=== PATIENT | female | born 1940 ===

== ENCOUNTER 2021-03-08 20:54 | Emergency (ER) | payer OTHER ==
[2021-03-08] MEDS ORDERED: LIDOCAINE 1% W/EPI 1:100,000 MDV 20 ML VIAL ONE (20:56)
--- OUTSIDE RECORDS SUMMARY | 2021-03-08 20:58 | XMS REPORT | Continuity of Care Document ---
:1940 Author Organization [facility] t Address [address] [place] [address] Care Team Providers Name Role Phone Marcellus Anne MD Primary Care Physician Susana Ricci Attending Clinician Unavailable Singh LAURENT Attending Clinician Unavailable Nurse, Pob Immunization Attending Clinician Unavailable Dustin Abdalla DO Attending Clinician DUSTIN ABDALLA Attending Clinician Unavailable Akash Ramírez Attending Clinician Unavailable Radiology Attending Clinician Unavailable RADIOLOGY Attending Clinician Unavailable Doctor Unassigned, Name Attending Clinician Unavailable Leroy Caldera Attending Clinician Unavailable Karen COLILER Attending Clinician Unavailable Physician, Primary Care Admitting Clinician Unavailable Loncarsherie, P Admitting Clinician Unavailable Physician, Primary or Family Admitting Clinician Unavailabl e LONROBYN, P Admitting Clinician Unavailable Payers Payer Name Policy Type Policy Number Effective Date Expiration Date S ource Problems This patient has no known problems. Allergies, Adverse Reactions, Alerts Allergy Allergy Status Severity Reaction(s) Onset Inactive Treating Comm ents Source Name Type Date Date Clinician Sulfa Propensi Active Other - See 2020-03 Per Uni vers (Sulfona ty to comments 05-09 patient: ity of mide adverse 00:00: fever [place] Antibiot reaction 00 Medica l ics) s Branch hydrocod DA Active MO "COULD [facility] one HARDLY STAY 8-30 Clear AWAKE" 00:00: Moore 00 [facility] vancomyc DA Active MO RASHES [facility] in 11-27 Clear 00:00: [place] 00 [facility] Sulfa DA Active [place] [facility] (Sulfona 830 Clear mide 00:00: [place] Antibiot 00 [facility] hydrocod DA Active MO 2020- [facility] one 11-27 Clear 00:00: Moore 00 [facility] vancomyc DA Active [place] [facility] in 11-27 Clear 00:00: Moore 00 [facility] Sulfa DA Active MO RASHES [facility] (Sulfona 8-30 Clear mide 00:00: [place] Antibiot 00 Regiona ics) [facility] Center Sulfa DA Active U RASH 2018-03 [facility] (Sulfona 0-31 [place] m[place] 00:00: d Antibiot 00 Medical ics) Center Sulfa DA Active U 2018-03 [facility] (Sulfona 0-31 [place] 00:00: d Antibiot 00 Medical ics) Center Sulfa DA Active U [facility] (Sulfona 3-06 [place] mide 00:00: Orthope Antibiot 00 dic ics) Hospita l Sulfa DA Active U [facility] (Sulfona 3-05 [place] mide 00:00: Orthope Antibiot 00 dic ics) Hospita l Sulfa DA Active U [facility] (Sulfona 1-20 [place] mide 00:00: Orthope Antibiot 00 dic ics) Hospita l NO KNOWN Drug Active Univers ALLERGIE Class ity of [facility] Social History Social Habit Start Date Stop Date Quantity Comments Source Sex Assigned At [birth year] [facility] 00:00:00 00:00:00 [facility] Smoking Status Start Date Stop Date Source Unknown if ever smoked [facility] Medications This patient has no known medications. Immunizations Ordered Filled Immunization Date Status Comments [facility] e Immunization Name Name SARS-COV-2 COVID-19 2021-02-08 Completed Unive rsity of PFIZER VACCINE 00:00:00 [facility] SARS-COV-2 COVID-19 2021-02-08 Completed Unive rsity of PFIZER VACCINE 00:00:00 [facility] SARS-COV-2 COVID-19 2020-05-25 Completed Unive rsity of PFIZER VACCINE 00:00:00 [facility] SARS-COV-2 COVID-19 2020-05-25 Completed Unive rsity of PFIZER VACCINE 00:00:00 [facility] SARS-COV-2 COVID-19 2020-05-25 Completed Unive rsity of PFIZER VACCINE 00:00:00 [facility] SARS-COV-2 COVID-19 2020-05-25 Completed Unive rsity of PFIZER VACCINE 00:00:00 [facility] SARS-COV-2 COVID-19 2020-04-27 Completed Unive rsity of PFIZER VACCINE 00:00:00 [facility] SARS-COV-2 COVID-19 2020-04-27 Completed Unive rsity of PFIZER VACCINE 00:00:00 [facility] SARS-COV-2 COVID-19 2020-04-27 Completed Unive rsity of PFIZER VACCINE 00:00:00 [facility] SARS-COV-2 COVID-19 2020-04-27 Completed Unive rsity of PFIZER VACCINE 00:00:00 [facility] Procedures Procedure Date / Time Performed Performing Clinician [facility] e SARS-COV-2 COVID-19 2021-02-08 16:08:43 Doctor Unassigned, No [facility] [place] VACCINE,0.3ML, Name Medical Branch (PFIZER) MR ANKLE RIGHT WO 2020-09-11 20:47:00 Requisition, Paper Univers [facility] ASSIGNMENT OF BENEFITS 2020-09-11 19:54:15 Doctor Unassigned, No [facility] [id number] 2019-04-22 [facility] [id number] 2019-04-22 00:00:00 WILJB [facility] [id number] 2019-04-22 [facility] [id number] 2019-04-22 00:00[facility] [id number] 2019-04-22 00:00:00 [facility] Encounters Start End Encounter Admission Attending Care Care Encounter Source Date/Time Date/Time Type Type Clinicians Facility Department ID 2019-04-29 Inpatient AIME CrespoTO DAYS [id number] [facility] 08:30:00 [facility] [place] [facility] 2019-04-22 Inpatient AIME CrespoTO DAYS [id number] [facility] 08:30:00 Dominic [id number] [place] [facility] 2019-04-05 Inpatient AIME CrespoTO RADI [id number] [facility] 07:45:00 Dominic [place] [facility] 2021-03-08 2021-03-08 Nurse Yecenia Winters [id number] Univers 00:00:00 00:00:00 Triage CALI [id number] it y [facility] [id number] Ron as [id number] [address] 2021-02-08 2021-02-08 Imm/Inj Nurse, Adc Pob Immunization [facility] [id number] Univers 10:01:08 10:01:17 Visit Giancarlo Abdalla 350.1.13 .[facility] [place] [id number] Md dical [address] 2021-02-08 2021-02-08 Outpatient Madeleine ABDALLA [facility] [id number] Univers 10:00:00 10:00:00 GIANCARLO alonso [facility] 2020-12-05 2020-12-05 Outpatient BALDOMERO Ramírez HCATO DAYS [id number] [facility] 09:05:00 09:05:00 Star [id number] [place] [facility] 2020-11-27 2020-11-27 Outpatient AIME RamírezCL LABO [id number] [facility] 18:55:00 18:55:00 Star [id number] [facility] 2020-11-27 2020-11-27 Inpatient BALDOMERO Ramírez HCATO SURG [id number] [facility] 15:00:00 15:00:00 Star [id number] [place] [facility] 2020-09-11 2020-09-11 Hospital Radiology [facility] [id number] Univers 14:56:55 23:59:00 Encounter Lilly [id number] ity of [place] 4.2.7.2.686 [facility] [id number] [facility] 804 Branch 2020-09-11 2020-09-11 Outpatient [facility] [id number] Univers 15:00:00 15:00:00 [id number] ity [facility] 2020-09-11 2020-09-11 Outpatient R RADIOLOGY [facility] [id number] Univers 00:00:00 00:00:00 ity [facility] 2020-09-11 2020-09-11 Orders Doctor AILIN [id number] [id number] Univers 00:00:00 00:00:00 Only Unassigned, CALI 350.1.13.10 ity of [facility] 4.2.7.2.686 [facility] [id number] [facility] 009 Branch 2020-07-18 2020-07-18 Outpatient YELENA Barnes [id number] [facility] 12:00:00 12:00:00 Nikki [id number] [facility] 2020-05-25 2020-05-25 Outpatient R [facility] [id number] Univers 12:50:00 12:50:00 [id number] [facility] 2020-05-25 2020-05-25 Outpatient R NANDO, [facility] [id number] Univers 12:50:00 12:50:00 [facility]-05-18 2020-05-18 Outpatient R NANDO [facility] [id number] Univers 12:50:00 12:50:00 EDEN [id number] ity [facility] 2020-04-27 2020-04-27 Outpatient R NANDO [facility] [id number] Univers 11:30:00 11:30:00 EDEN [facility] 2019-04-22 2019-04-22 Outpatient APARNA Ricci LABO [id number] [facility] 17:58:00 17:58:00 Dominic [id number] [facility] 2019-04-05 2019-04-05 Outpatient YENI Ricci SIST [id number] [facility] 12:09:00 12:09:00 Dominic [id number] [facility] 2018-04-16 2018-04-16 Outpatient R RADIOLOGY [facility] [id number] [facility] [place] [facility] 09:44:22 23:59:00 ity [facility] Results Test Description Test Time Test Comments Results Result Comments Source Novel Coronavirus 2018 Inhouse 2020-11-28 12:30:00 Test Item Value Reference Range Interpretation Comme nts Novel Coronavirus 2019 Negative Negative Posit edy results are indicative of the Inhouse (test code = presenc e [id number]-9 RNA, clinical COVNONPUI) correlation wit h patient historyand other diagnosti c information is necessary to de terminepatient infection status. Positiv e results do not rule outbacterial in fection or co-infection with other viru ses. Negative results do not preclude SA RS-CoV-2 infection andshould not b e used as the sole basis for patient man agementdecisions. Negative result s must be combined with otherclinical o bservations, patient history, and ep idemiologicalinformation. Detection of SA RS-CoV-2 RNA may be affected bysamp le collection methods, storage conditi ons, and/or stageof infection. Tammy l RNA mutations, vaccinations, a ntiviraltherapeutics, antibiotics, ch emotherapeutic orimmunosuppres christine drugs have not been evaluated for e ffectson detection. Results are for the identification of SARS-CoV-2 RNA usingthe JoGuru M2000 System under th e FDA Emergency UseAuthorizatio n. The testing is performed by regina rsonneltrained in the procedures for the Kiser M2000 moleculardiagno stic SARS-CoV-2 assay in vitro. Novel Coronavirus 2018 [id number] 12:29:00 Test Item Value Reference Range Interpretation Comments Novel Coronavirus Negative Negative Positive r esults are 2019 Inhouse (test indicativ e of the presence code = COVNONPUI) ofSARS-CoV -2 RNA, clinical correlation wit h patient historyand othe r diagnostic info rmation is necessary to determinepatien t infection status. Positiv e results do not rule out bacterial infection or co -infection with other viru ses. Negative result s do not preclude SARS-C oV-2 infection andsh ould not be used as the jasmeet e basis for patient managementdecis ions. Negative result s must be combined with otherclinical observations, p atient history, and epidemiological information . Detection of SARS-CoV-2 RNA may be affe cted bysample collec tion methods, storag e conditions, and /or stageof infection. Tammy l RNA mutations, vacc inations, antiviraltherap eutics, antibiotics, chemotherapeuti c orimmunosuppres christine drugs have not been e valuated for effectson d etection. Results are for the identification of SARS-CoV-2 RNA usingthe JoGuru M2000 Sy stem under the FDA Emergen cy UseAuthorizatio n. The testing is perf ormed by saw webb in the procedures for the MeetMeTix000 molecular diagnostic SARS-CoV-2 assa y in vitro. BASIC METABOLIC [id number] 21:13:00 Test Item Value Reference Range Interpretation Comments SODIUM (test code = 144 mmol/L 136-145 N NA) POTASSIUM (test code = 4.1 mmol/L 3.5-5.1 N K) CHLORIDE (test code = 107.0 mmol/L 98-107 N CL) CARBON DIOXIDE (test 26.5 mmol/L 21-32 N code = CO2) GLUCOSE (test code = 110 mg/dL 70-110 N GLU) BLOOD UREA NITROGEN 16 mg/dL 7-18 N (test code = BUN) GLOMERULAR FILTRATION 65.8 >60 Unit o f measure: RATE (test code = GFR) mL/mi n/1.73 [id number] Range:Healthy Adults >90 mL/min/1.73 m2 For Chronic Kidney Disease: St age II Mild Decrease in GFR 60-90 St age III Moderate Decrease in GFR 30-59 Stage IV Severe Decre ase in GFR 15- 29 Stage V Kidney Failure <15 CREATININE (test code 0.83 mg/dL 0.55-1.30 N = CREAT) CALCIUM (test code = 9.6 mg/dL 8.2-10.1 N CA) MR ANKLE RIGHT WO [id number] 00:11:00 Nondisplaced fracture of the tip of the fibula. Mild marrow edema within the medial aspect of the navicula compatible withcontusion or stress reaction. Tendinopathy versus low-grade partial thickness tearing of the distalposterior tibialis tendon with associated mild tenosynovitis. Tendinopathy of the peroneus longus tendon. Partial- thickness tears of the anterior posterior tibiofibular ligamentsandanterior talofibular ligament. There is also thickening and increasedT2 signal intensity within the proximal aspect of the calcaneofibularligament, compatible with partial-thickness tear. INDICATION: ?Ankle pain ORDERING PROVIDER: ?STAR RAMÍREZ TECHNIQUE: ?Unenhanced MRI of the right ankle and hindfoot RL: 2832 FINDINGS: ?There is a nondisplaced fracture through the tip of the fibulawith fracture fragment measuring up to 6 mm in size. There is associatedmarrow edema compatible with recent fracture. Mild marrow edema is noted within the medial aspect of the navicula whichcould be related to contusion or stress reaction. No additional acute marrow edema is identified. No suspicious marrow signalabnormality, osteonecrosis, or osteochondral lesion is demonstrated. No joint effusion is present. Mildly increased T2 signal intensity is noted within the peroneus longusjust proximal to the cuboid tunnel compatible with tendinopathy. Thepe roneus brevis is intact. No peroneal tenosynovitis. Mild posterior tibial tenosynovitis is present. Mild thickening andincreased T2 signal intensity involving the distal posterior tibialistendon is compatible with tendinopathy or low-grade partial thicknesstearing. The flexor hallucis longus and flexor digitorum longus tendons areintact, without tenosynovitis. The extensor tendons are intact, withouttenosynovitis. The Achilles tendon is intact. The plantar fascia is intact. No acute muscular edema or asymmetric atrophy is noted. Thickening of the anterior talofibular ligament is noted. This iscompatible with age-indeterminate partial thickness injury. Thickening of the anterior and posterior tibiofibular ligaments are alsocompatible with partial-thickness tear. The posterior talofibular ligamentis intact as are the deep andsuperficial fibers of the deltoid ligament. There is prominent thickening and increased T2 signal intensity within theproximal calcaneofibular ligament compatible with partial-thickness tear. [facility], Radiant Results Inft User - 09/11/2020 7:12 PM CDT INDICATION: Ankle painORDERING PROVIDER: STAR RAMÍREZTECHNIMICK: Unenhanced MRI of the right ankle and hindfootRL: 4084 FINDINGS: There is a nondisplaced fracture through the tip of the fibulawith fracture fragment measuring up to 6 mm in size. There is associatedmarrow edema compatible with recent fracture.Mild marrow edema is noted within the medial aspect of the navicula whichcould be related to contusion or stress reaction.No additional acute marrow edema is identified. No suspicious marrow signalabnormality, osteonecrosis, or osteochondral lesion is demonstrated.No joint effusion is present.Mildly increased T2 signal intensity is noted within the peroneus longusjust proximal to the cuboid tunnel compatible with tendinopathy. Theperoneus brevis is intact. No peroneal tenosynovitis.Mild posterior tibial tenosynovitis is present. Mild thickening andincreased T2 signal intensity involving the distal posterior tibialistendon is compatible with tendinopathy or low-grade partial thicknesstearing. The flexor hallucis longus and flexor digitorum longus tendons areintact, without tenosynovitis.The extensor tendons are intact, without tenosynovitis.The Achilles tendon is intact.The plantar fascia is intact.No acute muscular edema or asymmetric atrophy isnoted.Thickening of the anterior talofibular ligament is noted. This iscompatible with age-indeterminate partial thickness injury.Thickening of the anterior and posterior tibiofibular ligaments are alsocompatible with partial-thickness tear.The posterior talofibular ligament is intact as are the deep andsuperficial fibers of the deltoid ligament.There is prominent thickening and increased T2 signal intensity within theproximal calcaneofibular ligament compatible with partial-thickness tear.IMPRESSIONNondisplaced fracture of the tip of the fibula.Mild marrow edema within the medial aspect of the navicula compatible withcontusion or stress reaction.Tendinopathy versus low-grade partial thickness tearing of the distalposterior tibialis tendon with associated mild tenosynovitis.Tendinopathy of the peroneus longus tendon.Partial-thickness tears of the anterior posterior tibiofibular ligamentsand anterior talofibular ligament. There is also thickening and increasedT2 signal intensity within the proximal aspect of the calcaneofibularligament, compatible with partial-thickness tear. [facility] ISTAT-2019-05-12 12:51:00 Test Item Value Reference Range Interpretation Comments ISTAT-HEMOGLOBIN (test code = HBP) 9.5 g/dL 12-16 L ISTAT-HEMATOCRIT (test code = 28 % 38-51 L HCTP) ISTAT-SODIUM (test code = NAP) 151 mmol/L 138-146 H ISTAT-POTASSIUM (test code = KP) 4.3 mmol/L 3.5-4.9 N ISTAT-CHLORIDE (test code = CLP) 108 mmol/L 98-109 N ISTAT-GLUCOSE (test code = GLUP) 159 mg/dL 70-105 H ISTAT-BUN (test code = BUN-P) 10 mg/dL 8-26 N BASIC METABOLIC [id number] 17:43:00 Test Item Value Reference Range Interpretation Comments SODIUM (test code = 143 mmol/L 136-145 N NA) POTASSIUM (test code = 4.1 mmol/L 3.5-5.1 N K) CHLORIDE (test code = 103.0 mmol/L 98-107 N CL) CARBON DIOXIDE (test 27.7 mmol/L 21-32 N code = CO2) GLUCOSE (test code = 147 mg/dL 70-110 H GLU) BLOOD UREA NITROGEN 6 mg/dL 7-18 L (test code = BUN) GLOMERULAR FILTRATION 81.7 >60 Unit o f measure: RATE (test code = GFR) mL/mi n/1.73 [id number] Range:Healthy Adults >90 mL/min/1.73 m2 For Chronic Kidney Disease: St age II Mild Decrease in GFR 60-90 St age III Moderate Decrease in GFR 30-59 Stage IV Severe Decre ase in GFR 15- 29 Stage V Kidney Failure <15 CREATININE (test code 0.69 mg/dL 0.55-1.30 N = CREAT) CALCIUM (test code = 8.3 mg/dL 8.2-10.1 N CA) HGB [id number] 05:47:00 Test Item Value Reference Range Interpretation Comments HEMOGLOBIN (test code = HGB) 8.2 g/dL 12-16 L HEMATOCRIT (test code = HCT) 24.6 % 37-47 L HGB [id number] 05:56:00 Test Item Value Reference Range Interpretation Comments HEMOGLOBIN (test code = 6.8 g/dL 12-16 LL VERI FIED BY REPEAT HGB) ANALYSIS.CRITIC AL VALUE CALLED TO ERIC GIO/FAB JARETHERAREAD BACK & CONFIRMED? YBY Y.LAB.[facility] 04/28 0555 HEMATOCRIT (test code = 19.9 % 37-47 LL VERI FIED BY REPEAT HCT) ANALYSIS.CRITIC AL VALUE CALLED TO ERIC POWERS/FAB KARERAREAD BACK & CONFIRMED? YBY Y.LAB.[facility] 04/28 0556 HGB [id number] 07:06:00 Test Item Value Reference Range Interpretation Comments HEMOGLOBIN (test code = HGB) 8.1 g/dL 10.7-13.9 L HEMATOCRIT (test code = HCT) 24.3 % 32.1-42.1 L HGB [id number] 07:06:00 Test Item Value Reference Range Interpretation Comments HEMOGLOBIN (test code = HGB) 8.1 g/dL 10.7-13.9 L HEMATOCRIT (test code = HCT) 24.3 % 32.1-42.1 L HGB [id number] 07:10:00 Test Item Value Reference Range Interpretation Comments HEMOGLOBIN (test code = HGB) 7.0 g/dL 12-16 L HEMATOCRIT (test code = HCT) 21.1 % 37-47 L - XR SPINE 1 V SPEC [id number] 11:48:00 Patient Name: JJ CHAO Unit No: [id number] EXAMS: CPT CODE: [id number] XR SPINE 1 V SPEC LEVEL 70679 INTRAOPERATIVE LATERAL LUMBAR SPINE Film 1. A surgical instrument is posterior to L3-4. Film 2. Anterior intervertebral grafts are seen from L4 to S1 and pedicle screws present in L3. Film 3. Anterior and posterior fusionis present from L4 to S1 with posterior fusion at L3-4. at 1148 Reported and signed by: Thad Estes MD CC:Felipe Ricci M.D. Technologist: MAX, GREEN RT(R) Transcribed D/ (9590) t.ELIZAR.[facility] NAME: JJ CHAO [address] [place] [address] PHYS: Dominic Virk MD : 1940 AGE: 79 SEX: F [place] [address] LOC: Y.511 A PHONE #: [phone] EXAM DATE: 04/22/2019 STATUS: ADM IN FAX #: [phone] RAD #: D/C DT PAGE 1 Signed Report Patient Name: JJ CHAO Unit No: [id number] EXAMS: CPT CODE: [id number] XR SPINE 1 V SPEC LEVEL 19911 <Continued> Orig Print D/T: S: 04/23/2019 (3881) [facility] NAME: JJ CHAO [address] [place] [address] PHYS: Dominic Virk MD : 1940 AGE: 79 SEX: F [place] [address] LOC: Y.511 A PHONE #: [phone] EXAM DATE: 04/22/2019 STATUS: ADM IN FAX #: [phone] RAD #: D/C DT PAGE 2 Signed Report- XR SPINE 1 V SPEC [id number] 11:48:00 Patient Name: JJ CHAO Unit No: [id number] EXAMS: CPT CODE: [id number] XR SPINE 1 V SPEC LEVEL 22827 INTRAOPERATIVE LATERAL LUMBAR SPINE Film 1. A surgical instrument is posterior to L3-4. Film 2. Anterior intervertebral grafts are seen from L4 to S1 and pedicle screws present in L3. Film 3. Anterior and posterior fusionis present from L4 to S1 with posterior fusion at L3-4. at 1148 Reported and signed by: Thad Estes MD CC:Felipe Ricci M.D. Technologist: TAMMY LOUISE (RT.R) Transcribed D/ (1115) [email or web address].[facility] NAME: JJ CHAO [address] PHYS: Dominic Virk MD : 1940 AGE: 79 SEX: F [place] [address] LOC: Y.511 A PHONE #: [phone] EXAM DATE: 04/22/2019 STATUS: ADM IN FAX #: [phone] RAD #: D/C DT PAGE 1 Signed Report Patient Name: JJ CHAO Unit No: [id number] EXAMS: CPT CODE: [id number] XR SPINE 1 V SPEC LEVEL 75169 <Continued> Orig Print D/T: S: 04/23/2019 (1151) [facility] NAME: JJ CHAO [address] [facility] PHYS: Dominic Virk MD : 1940 AGE: 79 SEX: F [place] [address] LOC: Y.511 A PHONE #: [phone] EXAM DATE: 04/22/2019 STAT US: ADM IN FAX #: [phone] RAD #: D/C DT PAGE 2 Signed Report- XR SPINE 1 V SPEC LEVEL 2019-04-23 11:48:00 Patient Name: JJ CHAO Unit No: [id number] EXAMS: CPT CODE: [id number] XR SPINE 1 V SPEC LEVEL 48305 INTRAOPERATIVE LATERAL LUMBAR SPINE Film 1. A surgical instrument is posterior to L3-4. Film 2. Anterior intervertebral grafts are seen from L4 to S1 and pedicle screws present in L3. Film 3. Anterior and posterior fusionis present from L4 to S1 with posterior fusion at L3-4. at 1148 Reported and signed by: Thad Estes MD CC:Felipe Ricci M.D. Technologist: TAMMY LOUISE (RT.R) Transcribed D/ (1148) tALEKSANDRA [facility] NAME: JJ CHAO [address] [facility] PHYS: Dominic Virk MD : 1940 AGE: 79 SEX: F [place] [address] LOC: Y.511 A PHONE #: [phone] EXAM DATE: 04/22/2019 STATUS: ADM IN FAX #: [phone] RAD #: D/C DT PAGE 1 Signed Report Patient Name: JJ CHAO Unit No: [id number] EXAMS: CPT CODE: [id number] XR SPINE 1 V SPEC LEVEL 36571 <Continued> Orig Print D/T: S: 04/23/2019 (1151) [facility] NAME: JJ CHAO [address] [facility] PHYS: Dominic Virk MD : 1940 AGE: 79 SEX: F [place], [place] [address] LOC: Y.511 A PHONE #: [phone] EXAM DATE: 04/22/2019 STATUS: ADM IN FAX #: [phone] RAD #: D/C DT PAGE 2 Signed ReportBASIC METABOLIC [id number] 06:31:00 Test Item Value Reference Range Interpretation Comments SODIUM (test code = 142 mmol/L 136-145 N NA) POTASSIUM (test code = 4.5 mmol/L 3.5-5.1 N K) CHLORIDE (test code = 108.0 mmol/L 98-107 H CL) CARBON DIOXIDE (test 23.2 mmol/L 21-32 N code = CO2) GLUCOSE (test code = 115 mg/dL 70-110 H GLU) BLOOD UREA NITROGEN 13 mg/dL 7-18 N (test code = BUN) GLOMERULAR FILTRATION 63.3 >60 Unit o f measure: RATE (test code = GFR) mL/mi n/1.73 [id number] Range:Healthy Adults >90 mL/min/1.73 m2 For Chronic Kidney Disease: St age II Mild Decrease in GFR 60-90 St age III Moderate Decrease in GFR 30-59 Stage IV Severe Decre ase in GFR 15- 29 Stage V Kidney Failure <15 CREATININE (test code 0.86 mg/dL 0.55-1.30 N = CREAT) CALCIUM (test code = 7.9 mg/dL 8.2-10.1 L CA) HGB [id number] 06:00:00 Test Item Value Reference Range Interpretation Comments HEMOGLOBIN (test code = HGB) 7.6 g/dL 12-16 L HEMATOCRIT (test code = HCT) 22.6 % 37-47 L - MRI L-SPINE W/O [id number] 13:15:00 Patient Name: JJ CHAO Unit No: [id number] EXAMS: CPT CODE: [id number] MRI L-SPINE W/O CONT [id number] MRI OF THE LUMBAR SPINE: DIAGNOSIS: 1. At L1-2, disc de siccation. No central canal or foraminal stenosis. 2. At L2-3, disc desiccation. Mild central canal stenosis. Mild to moderate right foraminal mild left foraminal stenosis. 3. At L3-4, moderate disc degeneration. There is a grade 1 spondylolisthesis of L3 onL4. 3 mm disc protrusion. Marked hypertrophic central canal stenosis secondary to thickeningof ligamenta flava and marked facet arthropathy. There is concentric compression of thethecal sac and contained nerve roots. Bilateral lateral gutter stenosis. Marked bilateral foraminal stenosis secondary to lateralizing disc. 4. At L4-5, patient status post anterior discectomy and laminectomy. Mild foraminal stenosis. 5. At L5-S1, patient status post anterior discectomy and laminectomy. Moderate right foraminal mild left foraminal stenosis. COMMENT: COMPARISON: The current exam is compared to a previous exam dated December 06, 2016. Sagittal T1, T2 and STIR and axial T1 and T2-weighted sequences are obtained of the lumbar spine. The lumbar vertebrae are within normal limits in signal. The findings are as above. The conus is in the expected location. at 1315 Reported and signed by: Nabeel Rivera MD CC: Felipe Ricci M.D. Technologist: Alice Tejeda, RT(R) Transcribed D/ (1315) [id number] [facility] NAME: JJ CHAO [address] PHYS: Dominic Virk MD : 1940 AGE: 79 SEX: F [place], [place] [address] LOC: Y.MRI PHONE #: [phone] EXAM DATE: 04/05/2019 STATUS: REG CLI FAX #: [phone] RAD #: D/C DT PAGE 1 Signed Report Patient Name: FORTUNATO CAHO Unit No: [id number] EXAMS: CPT CODE: [id number] MRI L-SPINE W/O CONT [id number] <Continued> Orig Print D/T: S: 04/05/2019 (1318) [facility] NAME: JJ CHAO [address] [facility] PHYS: Dominic Virk MD : 1940 AGE: 79 SEX: F [place], [place] [address] LOC: Y.MRI PHONE #: [phone] EXAM DATE: 04/05/2019 STATUS: REG CLI FAX #: [phone] RAD #: D/C DT PAGE 2 Signed ReportBASIC METABOLIC [id number] 12:53:00 Test Item Value Reference Range Interpretation Comments SODIUM (test code = 140 mmol/L 136-145 N NA) POTASSIUM (test code = 4.3 mmol/L 3.5-5.1 N K) CHLORIDE (test code = 103.0 mmol/L 98-107 N CL) CARBON DIOXIDE (test 23.9 mmol/L 21-32 N code = CO2) GLUCOSE (test code = 97 mg/dL 70-110 N GLU) BLOOD UREA NITROGEN 17 mg/dL 7-18 N (test code = BUN) GLOMERULAR FILTRATION 58.6 >60 Unit o f measure: RATE (test code = GFR) mL/mi n/1.73 [id number] Range:Healthy Adults >90 mL/min/1.73 m2 For Chronic Kidney Disease: St age II Mild Decrease in GFR 60-90 St age III Moderate Decrease in GFR 30-59 Stage IV Severe Decre ase in GFR 15- 29 Stage V Kidney Failure <15 CREATININE (test code 0.92 mg/dL 0.55-1.30 N = CREAT) CALCIUM (test code = 9.3 mg/dL 8.2-10.1 N CA) URINALYSIS [id number] 11:07:00 Test Item Value Reference Range Interpretation Comments UA COLOR (test code = COLU) YELLOW YELLOW UA APPEARANCE (test code = CLEAR CLEAR APPU) UA GLUCOSE DIPSTICK (test code NEGATIVE NEGATIVE = DGLUU) UA BILIRUBIN DIPSTICK (test NEGATIVE NEGATIVE code = BILU) UA KETONE DIPSTICK (test code NEGATIVE mg/dL NEG = KETU) UA SPECIFIC GRAVITY (test code <=1.005 1.003-1.035 = SGU) UA BLOOD DIPSTICK (test code = NEGATIVE NEGATIVE CHRISTINA) UA PH DIPSTICK (test code = 5.5 >6.5 MICHAELA) UA PROTEIN DIPSTICK (test code NEGATIVE mg/dL NEG = PROU) UA UROBILINIOGEN DIPSTICK 0.2 mg/dL NORM (test code = URO) UA NITRITE DIPSTICK (test code NEGATIVE NEG = LETY) UA LEUKOCYTE ESTERASE DIPSTICK NEGATIVE NEGATIVE (test code = LEUU) UA WBC (test code = WBCU) <5 /HPF 0-2 UA RBC (test code = RBCU) 0-2 /HPF 0-2 UA EPITHELIAL CELLS (test code FEW /HPF 0-2 = EPIU) UA BACTERIA (test code = BACU) FEW /HPF NONE CBC W/AUTO [id number] 10:45:00 Test Item Value Reference Range Interpretation Comments WHITE BLOOD CELL (test code = WBC) 6.5 K/mm3 5.8-11.0 N RED BLOOD CELL (test code = RBC) 4.07 M/mm3 4.2-5.4 L HEMOGLOBIN (test code = HGB) 12.6 g/dL 12-16 N HEMATOCRIT (test code = HCT) 37.0 % 37-47 N MEAN CELL VOLUME (test code = MCV) 91 fL 80-98 N MEAN CELL HGB (test code = MCH) 31.0 pg 27-34 N MEAN CELL HGB CONCENTRATION (test 34.1 g/dL 30.8-34.1 N code = MCHC) RED CELL DISTRIBUTION WIDTH (test 13.7 % 11-16 N code = RDW) PLT (test code = PLT) 215 K/mm3 130-400 N MEAN PLATELET VOLUME (test code = 10.1 fL 8.9-12.1 N MPV) NEUTROPHIL % (test code = NT%) 55.0 % 45-70 N LYMPHOCYTE % (test code = LY%) 36.7 % 20-40 N MONOCYTE % (test code = MO%) 6.4 % 3-10 N EOSINOPHIL % (test code = EO%) 0.8 % 1-5 L BASOPHIL % (test code = BA%) 0.8 % 0.0-1.1 N NEUTROPHIL # (test code = NT#) 3.55 K/mm3 2.00-7.50 N LYMPHOCYTE # (test code = LY#) 2.37 K/mm3 1.50-4.00 N MONOCYTE # (test code = MO#) 0.41 K/mm3 0.2-0.8 N EOSINOPHIL # (test code = EO#) 0.05 K/mm3 0.04-0.4 N BASOPHIL # (test code = BA#) 0.05 K/mm3 0.02-0.10 N MANUAL DIFF REQUIRED (test code = NO MANUAL DIFF MDIFF) NUCLEATED RED BLOOD CELL (test 0 % 0-0 N code = NRBC) - XR FLUORO FOR SPINE [id number] 10:11:00 Patient Name: JJ CHAO Unit No: [id number] EXAMS: CPT CODE: [id number] XR FLUORO FOR SPINE INJ 79672 LUMBAR TRANSFORAMINAL INJECTION REFERRING PHYSICIAN:Bill Montez PREOPERATIVE DIAGNOSIS: Degenerative Lumbar Disc Disease. POSTOPERATIVE DIAGNOSIS: Lumbar radiculopathy PROCEDURES PERFORMED 1. Fluoroscopically guided needle localization of the bilateral L3, bilateral L4 spinal nerve/nerves with transforaminal epidural steroid injection/injections. 2. Transforaminal epidurogram/epidurograms bilateral L3, bilateral L4. FINDINGS: Poor filling all. Concordant provocation bilateral L4 hip. Pain relief-100%. ANTIBIOTIC: Cefazolin ESTIMATED BLOOD LOSS: Minimal ANESTHESIA: (TIVA )Total intravenous anesthetic (patient intolerant to sedatives and hypnotics) COMPLICATIONS: None DETAILS OFPROCEDURE: After obtaining stable vital signs, informed consent and IV access, with no known co ntraindications to proceeding, the patient was taken to the fluoroscopy suite and placed in a prone position with all extremities padded and appropriate monitors placed. A sterile prep and drape was performed over the lumbosacral spine. Using fluoroscopic visualization at each level the insertion site was marked for a paravertebral approach to the foramen. Using standard technique, a 25 gauge needle was advanced to the base of the pedicle. In AP view, final positioning was obtained outside the 6 on the clock position on the pedicle. Then, 1 mlof Isovue-300 contrast was injected to produce the epidurograms. No paresthesias were elicited with needle insertion or injection and there were no signs of intravascular or intrathecal uptake. Then, with 1 ml of 4% lidocaine and 10 mg of triamcinolone was injected incrementally with frequent negative aspirations. There were no signs of intravascular or intrathecal uptake. Each subsequent level was done using the same technique and medications. The patient's vital signs remained stable. The patient was taken to the PACU in good condition. at 1011 Reported and signed by: Deejay Blanca M.D. [facility] NAME: JJ CHAO [address] [facility] PHYS: Deejay Castaneda MD [place] [address] : 1940 AGE: 78 SEX: F LOC: [facility] PHONE #: [phone] EXAM DATE: 01/28/2019 [place]US: [place] [facility] [place] #: [phone] RAD #: D/C DT PAGE 1 Signed Report (CONTINUED) Patient Name: JJ CHAO Unit No: [id number] EXAMS: CPT CODE: [id number] XR FLUORO FOR SPINE INJ 62947 <Continued> CC: Deejay Blanca MD Technologist:GIDEON HERNANDEZ RT(R) Transcribed D/ (1011) tCADYUVZelalem [facility] NAME: ZHANNAISIDOROJJDAR HUERTA [address] [facility] PHYS: Deejay Castaneda MD [place] [address] : 1940 AGE: 78 SEX: F LOC: FR[facility] PHONE #: [phone] EXAM DATE: 01/28/2019 STATUS: REG SD FAX #: [phone] RAD #: D/C DT PAGE 2 Signed Report Patient Name: JJ CHAO Unit No: [id number] EXAMS: CPT CODE: [id number] XR FLUORO FOR SPINE INJ 53891 <Continued> Orig Print D/T:S: 01/28/2019 (1014) [facility] NAME: JJ CHAO [address] [facility] PHYS: DOCUD - Doctor,Deejay Higginbotham MD [place], [place] [address] : 1940 AGE: 78 SEX: F LOC: [facility] PHONE #: [phone] EXAM DATE: 01/28/2019 STATUS: REG SD FAX #: [phone] #: D/C DT PAGE 3 Signed Report- XR FLUORO FOR SPINE [id number] 09:19:00 Patient Name: JJ CHAO Unit No: [id number] EXAMS: CPT CODE: [id number] XR FLUORO FOR SPINE INJ 41188 LUMBAR TRANSFORAMINAL INJECTION REFERRING PHYSICIAN: PREOPERATIVE DIAGNOSIS: Degenerative Lumbar Disc Disease. POSTOPERATIVE DIAGNOSIS: Lumbar radiculopathy PROCEDURES PERFORMED 1. Fluoroscopically guided needle localization of the bilateral L4, bilateral L3, bilateral S1 spinal nerve/nerves with transforaminal epidural steroid injection/injections. 2. Transforaminal epidurogram/epidurogramsat bilateral L3, bilateral L4, bilateral S1. FINDINGS: Poor filling all. Concordant provocation bilateral L4 hips. Pain relief-100%. ANTIBIOTIC: Cefazolin ESTIMATED BLOOD LOSS: Minimal ANESTHESIA: (TIVA )Total intravenous anesthetic(patient intolerant to sedatives and hypnotics) COMPLICATIONS: None DETAILS OF PROCEDURE: After obtaining stable vital signs, informed consent and IV access, with no known contraindications to proceeding, the patient was taken to the fluoroscopy suite and placed in a prone position with all extremities padded and appropriate monitors placed. Asterile prep and drape was performed over the lumbosacral spine. Using fluoroscopic visualization at each level the insertion site was marked for a paravertebral approach to the foramen. Using standard technique, a 25 gauge needle was advanced to the base of the pedicle. In AP view, final positioning was obtained outside the 6 on the clock position on the pedicle. Then, 1 ml of Isovue-300 contrast was injected to produce the epidurograms. No paresthesias were elicited with needle insertion or injection and there were no signs of intravascular or intrathecal uptake. Then, with 1 ml of 4% lidocaine and 10 mg of triamcinolone was injected incrementally with frequent negative aspirations. There were no signs of intravascular or intrathecal uptake. Each subsequent level was done using the same technique and medications.The patient's vital signs remained stable. The patient was taken to the PACU in good condition. at 0919 Reported and signed by: Deejay Blanca M.D. [facility] NAME: JJ CHAO [address] [facility] [address] PHYS: Deejay Castaneda MD [place] [address] : 1940 AGE: 78 SEX: F LOC: FR[facility]CH PHONE #: [phone] EXAM DATE: 06/03/2018 [place]: [place] [facility] [place] #: [phone] RAD #: D/C DT PAGE 1 Signed Report (CONTINUED) Patient Name: ENRIQUE CHAO Unit No: [id number] EXAMS:CPT CODE: [id number] XR FLUORO FOR SPINE INJ 34516 <Continu ed> CC: Deejay Blanca MD; Felipe Ricci M.D. Technologist: NARDA HOOK RT(R) Transcribed D/ (918) [facility] NAME: ISIDORO CHAODAR HUERTA [address] [facility] [address] PHYS: Deejay Castaneda MD [place] [address] : 1940 AGE: 78 SEX: F LOC: [facility] PHONE #: [phone] EXAM DATE: 06/03/2018 [place]US: [place] [facility] [place] #: [phone] RAD #: D/C DT PAGE 2 Signed Report Patient Name: JJ CHAO Unit No: [id number] EXAMS: CPT CODE: [id number] XR FLUORO FOR SPINE INJ 70605 <Continued> Orig Print D/T: S: 06/03/2018 (921) [facility] NAME: JJ CHAO [address] [facility] [address] PHYS: Deejay Castaneda MD [place], [place] [address] : 1940 AGE: 78 SEX: F LOC: [facility] PHONE #: [phone] EXAM DATE: 06/03/2018 STATUS: REG SDC FAX #: [phone] RAD #: D/C DT PAGE 3 Signed Report
[2021-03-08] MEDS ORDERED: MORPHINE 4 MG/ML SYR ONE (21:04)
[2021-03-08] MEDS ORDERED: ONDANSETRON 4 MG/2 ML VIAL ONE ×2 (21:04→22:29)
[2021-03-08] MEDS ORDERED: NA CHLORIDE 0.9% 500 ML ONE (22:30)
[2021-03-08 22:35] LABS: Absolute Lymphocytes (CBC) 0.5 K/uL (0.7-4.9); Basophils % 0.4 % (0-1.3); Hematocrit 32.2 % (36.0-45.0); Lymphocytes % 8.5 % (15.3-44.8); MPV 8.2 fL (7.6-11.3); RBC Red Blood Cell Count 3.66 M/uL (3.86-4.86)
[2021-03-08 22:46] LABS: Albumin 3.3 g/dL (3.4-5.0); Bilirubin Direct 0.1 mg/dL (0-0.2); Bilirubin Total 0.4 mg/dL (0.2-1.0); Potassium 4.2 mmol/L (3.5-5.1); Protein, Total 6.7 g/dL (6.4-8.2)
[2021-03-08 23:25] LABS: SARS-COV-2 RT PCR NEGATIVE (NEGATIVE)
[2021-03-08 23:59] LABS: Urine Blood Negative (Negative); Urine Glucose Negative (Negative); Urine Protein Negative (Negative); Urine pH 6.5 (5.0-7.0)
[2021-03-09 00:29] LABS: Urine Bacteria <20 /HPF (<20); Urine RBC <5 /HPF (NONE SEEN)
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
--- NOTE | 2021-03-09 01:04 | EDPHYS ---
Physician Documentation [facility] Name: Elisha Naik Age: 80 yrs Sex: Female : 1940 Arrival Date: 03/08/2021 Time: 20:55 Bed 18 Private MD: ED Physician Andres Garrido HPI: 03/08 23:59 This 80 yrs old Female presents to ER via Ambulatory with complaints of Fever, Nausea, rn Reaction to flu shot. 23:59 The patient reports fever, that was measured at 102 degrees Fahrenheit. Onset: The rn symptoms/episode began/occurred today. Modifying factors: there are no obvious modifying factors. Associated signs and symptoms: Pertinent positives: nausea, runny nose, Pertinent negatives: altered mental status, cough, diarrhea, skin rash, shortness of breath, sore throat. Severity of symptoms: At their worst the symptoms were moderate in the emergency department the symptoms have improved. The patient has not experienced similar symptoms in the past. The patient has not recently seen a physician. Patient reports got flu shot yesterday morning, a few hours later was nauseated and noted to have fever to 102. Reports abdominal cramping as well as runny nose. Denies cough or shortness of breath. Has never had problems with flu vaccine.. Historical: - Allergies: 21:35 Sulfa (Sulfonamide Antibiotics); da3 - PMHx: 21:35 hysterectomy; da3 - PSHx: 21:35 rt heel; 2 knee replaced; back fusion; da3 - Immunization history:: Client reports receiving the 2nd dose of the Covid vaccine. - Social history:: Smoking status: Patient denies any tobacco usage or history of. - Family history:: not pertinent. - Hospitalizations: : No recent hospitalization is reported. ROS: 23:59 Constitutional: Negative for fever, chills, and weight loss, Eyes: Negative for injury, rn pain, redness, and discharge, ENT: Positive for runny nose Cardiovascular: Negative for chest pain, palpitations, and edema, Respiratory: Negative for shortness of breath, cough, wheezing, and pleuritic chest pain, Abdomen/GI: Negative for vomiting, diarrhea, and constipation, Back: Negative for injury and pain, : Negative for injury, bleeding, discharge, and swelling, MS/Extremity: Negative for injury and deformity, Skin: Negative for injury, rash, and discoloration, Neuro: Negative for headache, weakness, numbness, tingling, and seizure. Exam: 23:59 Constitutional: This is a well developed, well nourished patient who is awake, alert, rn and in no acute distress. Head/Face: Normocephalic, atraumatic. Eyes: Periorbital areas with no swelling, redness, or edema. Cardiovascular: Regular rate and rhythm. No pulse deficits. Respiratory: Speaking full sentences, unlabored breathing. No increased work of breathing, no retractions or nasal flaring. Abdomen/GI: Soft, non-tender Skin: Warm, dry MS/ Extremity: Pulses equal, no cyanosis. Neuro: Awake and alert, GCS 15, oriented to person, place, time, and situation. Cranial nerves II-XII grossly intact. Motor strength 5/5 in all extremities. Sensory grossly intact. Vital Signs: 21:31 BP 144 / 65; Pulse 94; Resp 20; Temp 98.7; Pulse Ox 98% on R/A; Weight 66.22 kg; Height da3 5 ft. 0 in. (152.40 cm); 22:00 BP 141 / 66; Pulse 91; Resp 18; Pulse Ox 99% on R/A; sm5 23:00 BP 139 / 65; Pulse 87; Resp 17; Pulse Ox 100% on R/A; sm5 03/09 00:00 BP 143 / 71; Pulse 85; Resp 17; Pulse Ox 97% ; sm5 01:18 BP 135 / 68; Pulse 80; Resp 17; Pulse Ox 98% on R/A; 5 03/08 21:31 Body Mass Index 28.51 (66.22 kg, 152.40 cm) da3 MDM: 03/08 20:56 Patient medically screened. rn 03/09 01:01 Differential diagnosis: viral Infection, bacterial infection, UTI, gastroenteritis, rn Adverse reaction to flu vaccine. Data reviewed: vital signs, nurses notes, lab test result(s), radiologic studies, CT scan, and as a result, I will discharge patient. Counseling: I had a detailed discussion with the patient and/or guardian regarding: the historical points, exam findings, and any diagnostic results supporting the discharge/admit diagnosis, lab results, radiology results, the need for outpatient follow up, to return to the emergency department if symptoms worsen or persist or if there are any questions or concerns that arise at home. Response to treatment: the patient's symptoms have markedly improved after treatment, and as a result, I will discharge patient. Special discussion: Based on the patient's Hx, exam, and Dx evaluation, there is no indication for emergent surgery or inpatient Tx. It is understood by the patient/guardian that if the Sx's persist or worsen they need to return immediately for re-evaluation. I discussed with the patient/guardian in detail that at this point there is no indication for admission to the hospital. It is understood, however, that if the symptoms persist or worsen the patient needs to return immediately for re-evaluation. ED course: Patient feels much better, no longer nauseated or vomiting. CT abdomen pelvis no acute findings. Urine negative. Covid and flu negative. Could be viral syndrome that we have been seeing a lot of versus adverse reaction to the flu vaccine. Will DC home with as needed Zofran and return precautions. Patient wants to go home and states feels much better.. 03/08 22:07 Order name: Basic Metabolic Panel rn 03/08 22:07 Order name: CBC with Diff rn 03/08 22:07 Order name: Hepatic Function rn 03/08 22:07 Order name: Lipase rn 03/08 22:07 Order name: Urine Microscopic Only; Complete Time: 00:54 rn 03/08 22:07 Order name: Procalcitonin; Complete Time: 23:59 rn 03/08 22:09 Order name: Basic Metabolic Panel; Complete Time: 23:59 EDMS 03/08 20:57 Order name: Labs collected and sent; Complete Time: 21:01 rn 03/08 20:57 Order name: NPO; Complete Time: 21:01 rn 03/08 22:07 Order name: CT Abd/Pelvis - IV Contrast Only rn 03/08 22:09 Order name: CBC with Automated Diff; Complete Time: 23:59 EDMS 03/08 22:09 Order name: Liver (Hepatic) Function; Complete Time: 23:59 EDMS 03/08 22:09 Order name: Lipase; Complete Time: 23:59 EDMS 12 22:46 Order name: COVID-19/FLU A+B; Complete Time: 23:59 EDMS 03/08 23:58 Order name: Urine Dipstick-Ancillary; Complete Time: 00:54 EDMS 03/08 20:57 Order name: Suture Tray at Bedside; Complete Time: 21:01 rn 03/08 22:07 Order name: IV Saline Lock; Complete Time: 22:42 rn 03/08 22:07 Order name: Urine Dipstick-Ancillary (obtain specimen); Complete Time: 00:00 rn Administered Medications: 03/08 21:06 Not Given (wrong chartt): morphine 4 mg IVP once; RASS on ADMIN: Combtv4, Very Agttd3, tw5 Agttd2, Rstlss1, AlertClm0, Drwsy-1, Lt Sdtn-2, Mod Sdtn-3, Dp Sdtn-4, UnArsble-5 21:07 Not Given (wrong chartt): Zofran (Ondansetron) 4 mg IVP once; over 2 minutes tw5 21:57 CANCELLED (Inappropriate at this time): Lidocaine-Epinephrine -1%: (1:100,000) 1 vials bb 20 ml Infiltration once; to bedside 22:37 Drug: Zofran (Ondansetron) 4 mg Route: IVP; Site: right antecubital; [facility] 03/09 01:18 Follow up: Response: Marked relief of symptoms 5 03/08 22:38 Drug: NS 0.9% 500 ml Route: IV; Rate: bolus; Site: right antecubital; 5 23:00 Follow up: IV Status: Completed infusion; IV Intake: 500ml [facility] 03/09 01:15 Drug: Zofran (Ondansetron) 4 mg Route: IVP; Site: right antecubital; 5 01:18 Follow up: Response: Marked relief of symptoms 5 Disposition Summary: 03/09/21 01:04 Discharge Ordered Location: Home rn Problem: new rn Symptoms: have improved rn Condition: Stable rn Diagnosis - Nausea rn Followup: rn - With: Private Physician - When: As needed - Reason: Recheck today's complaints, Re-evaluation by your physician Discharge Instructions: - Discharge Summary Sheet rn - Nausea, Adult rn Forms: - Medication Reconciliation Form rn - Thank You Letter rn - Antibiotic fingernail former - Prescription Opioid Use rn Prescriptions: - ondansetron 4 mg Oral tablet,disintegrating - take 1 tablet by ORAL route every 8 hours As needed; 20 tablet; Refills: 0, rn Product Selection Permitted Signatures: Dispatcher [employer] EDMS Tatum Villegas RN Andres Church MD MD rn Allan, David, RN RN naman3 Lilia Garcia tw5 Charlette Denny, RN RN sm5 Corrections: (The following items were deleted from the chart) 03/08 21: 21:03 Allergies: Codeine; [facility] 21: Allergies: Iodine; [facility] 21: PMHx: Parkinson's disease; [facility] 21: PMHx: Lupus erythematosus; [facility] 21: Immunization history: Adult Immunizations unknown, [facility] 21: Social history: Smoking status: unknown [facility] 20:58 Head C Spine CAP W Con+CT.RAD.BRZ ordered. EDMS EDMS 21:57 20:57 Lidocaine-Epinephrine -1%: (1:100,000) 1 vials 20 ml Infiltration once; to bedside ordered. rn 21: 20:58 BASIC METABOLIC PANEL+C.LAB.BRZ ordered. EDMS EDMS 21:57 20:58 CBC+H.LAB.BRZ ordered. EDMS EDMS 21:57 20:58 TYPE AND SCREEN+BB.LAB.BRZ ordered. EDMS EDMS 21:57 20:58 PROTIME (+INR)+COAG.LAB.BRZ ordered. EDMS EDMS 21:57 20:58 PTT, ACTIVATED+COAG.LAB.BRZ ordered. EDMS EDMS 21:57 21:57 Lidocaine-Epinephrine -1%: (1:100,000) 1 vials 20 ml Infiltration once; to bedside ordered. 22: 20:58 Wrist Right 3 View+RAD.RAD.BRZ ordered. EDMS EDMS 22:46 22:10 Influenza Screen (A \T\ B)+BA.LAB.BRZ ordered. EDMS EDMS 22:46 22:10 SARS-COV-2 RT PCR+MOL.LAB.BRZ ordered. EDMS EDMS
[2021-03-09] MEDS ORDERED: ONDANSETRON 4 MG/2 ML VIAL ONE (01:09)
[2021-03-09 01:26] VITALS: TEMP 98.7
[2021-03-09 01:32] VITALS: BP 135/68; O2SAT 98
--- NOTE | 2021-03-09 11:55 | RAD REPORT ---
EXAM DESCRIPTION: CT - Abdomen Pelvis W Contrast - 03/09/2021 4:47 am CLINICAL HISTORY: 80 years, Female, nausea;Abd pain COMPARISON: None. TECHNIQUE: Contrast-enhanced images of the abdomen and pelvis were performed utilizing 5 mm slice th ickness at 5 mm interval reconstruction from the lung bases to the ischial tuberosities after the adm inistration of IV contrast. In addition multiplanar reformats in the coronal and sagittal plane were obtained and reviewed. This exam was performed according to our departmental dose-optimization protocol, which includes auto mated exposure control, adjustment of the mA and/or kV according to patient size and/or use of iterat edy reconstruction technique. FINDINGS: The lung bases demonstrate to be clear. Mild elevation of the right hemidiaphragm. The liver demonstrate slight decreased attenuation suggesting mild fatty infiltration. Otherwise the liver, gallbladder, pancreas, spleen and adrenal glands demonstrate to be unremarkable, no focal lesi ons are noted. The kidneys demonstrate normal uptake of contrast media. No evidence for nephrolithiasis and/or hydro nephrosis. Grossly the unopacified stomach, small bowel and large bowel demonstrate to be within normal limits. There is no evidence for bowel dilatation and/or free air. Mild fecal stasis. The appendix is nor mal. There is minimal diverticulosis within the left site colon/sigmoid colon The urinary bladder demonstrate to be unremarkable. The uterus is absent. No significant major adne xal masses are seen. The aorta demonstrate minimal atherosclerotic disease. There is no retroperi toneal lymphadenopathy. There is no evidence for ascites/or significant abnormal fluid collections. The bone windows demonstrate laminectomy with posterior joint injection at L3-L4. There is interverte bral disc cage fixation device at L5/S1. IMPRESSION: Mild fatty infiltration. Mild fecal stasis. Minimal diverticulosis without evidence for acute diverticulitis. Status post hysterectomy. Status post laminectomy with posterior joint injection at L3-L4 and intervertebral disc cage fixation device at L5/S1. Electronically signed by: Víctor Kumar MD 03/08/2021 11:45 PM [employer] Due to temporary technical issues with the PACS/Fluency reporting system, reports are being signed by the in house radiologist without review as a courtesy to ensure prompt reporting. The interpreting r adiologist is fully responsible for the content of the report.
== END 2021-03-09 01:20 | disposition home or self-care (01) ==
LOC: ER 20:54
DX: R11.0 Nausea (principal); Z20.822 Contact with and (suspected) exposure to COVID-19; Z88.2 Allergy status to sulfonamides
CPT/HCPCS: 85025; 80048; 36415; 80076; 83690; 84145; 0240U; 74177; 96374; 99284; Q9967; J7040; J2405 ×2; 81003; 81015